=== PATIENT | male | born 1980 | race Caucasian/White ===

== ENCOUNTER 2016-08-25 16:04 | Emergency (ER) | payer OTHER | END 2016-08-25 18:33 | disposition home or self-care (01) | LOC: ER1 16:04 | DX: S05.01XA Injury of conjunctiva and corneal abrasion without foreign body, right eye, initial encounter (principal); X58.XXXA Exposure to other specified factors, initial encounter; Z23 Encounter for immunization | CPT/HCPCS: 90471; 90714; 99283 ==

== ENCOUNTER 2020-12-29 21:01 | Emergency (ER) | payer OTHER ==
[~2020-12-29 21:01] MED LIST: CYCLOBENZAPRINE10 MG PO; NAPROSYN500 MG PO
== END 2020-12-29 23:00 | disposition left against medical advice (07) ==
LOC: ER1 21:01
DX: Z53.21 Procedure and treatment not carried out due to patient leaving prior to being seen by health care provider (principal)